=== PATIENT | male | born 1950 | race Caucasian/White ===

== ENCOUNTER 2024-07-11 13:49 | Emergency (ER) | payer OTHER ==
[2024-07-11] MEDS ORDERED: ASPIRIN 81 MG CHEWABLE TABLET ONE (14:22)
[2024-07-11 14:29] LABS: Absolute Eosinophils 0.1 K/uL (0-0.5); Absolute Lymphocytes (CBC) 1.7 K/uL (0.7-4.9); Absolute Neutrophil 13.6 K/uL (1.8-8.0); Basophils % 0.3 % (0-1.3); Eosinophils % 0.9 % (0-4.4); Hematocrit 43.1 % (39.6-49.0); Hemoglobin 14.2 g/dL (13.6-17.9); Lymphocytes % 10.3 % (15.3-44.8); MCHC 32.9 g/dL (32.0-36.0); MCV 88.3 fL (80-100); MPV 8.4 fL (7.6-11.3); Monocytes % 6.2 % (3.3-12.3); Neutrophils % 82.3 % (41.7-73.7); Platelets 209 thou/uL (152-406); RBC Red Blood Cell Count 4.88 M/uL (4.33-5.43); Red Cell Distribution Width 14.1 % (12.1-15.2)
[2024-07-11 14:46] LABS: Anion Gap 5.5 mEq/L (5.0-15.0); Magnesium 2.3 mg/dL (1.6-2.4); Potassium 3.5 mEq/L (3.5-5.1); Troponin High Sensitivity 4.1 pg/mL (<58.9)
--- NOTE | 2024-07-11 15:10 | RAD REPORT ---
Procedure: Chest Single View HISTORY: Chest pain COMPARISON: none FINDINGS: The lungs appear clear of acute infiltrate. No significant pleural effusion noted. The heart is normal size. IMPRESSION: No acute abnormality is displayed.
--- NOTE | 2024-07-11 17:29 | ER ---
Nurse's Notes [facility] Name: Elvis Woodall Jr Age: 74 yrs Sex: Male : 1950 Arrival Date: 07/11/2024 Time: 13:49 Bed 8 Private MD: Diagnosis: Chest pain, unspecified Presentation: 07/11 13:58 Chief complaint: Patient states: chest pain that began at 1000 this morning. ss Coronavirus screen: Client denies travel out of the [place] in the last 14 days. Ebola Screen: Patient denies exposure to infectious person. Patient denies travel to an Ebola-affected area in the 21 days before illness onset. Initial Sepsis Screen: Does the patient meet any 2 criteria? No. Patient's initial sepsis screen is negative. Does the patient have a suspected source of infection? No. Patient's initial sepsis screen is negative. Risk Assessment: Do you want to hurt yourself or someone else? Patient reports no desire to harm self or others. Onset of symptoms was July 11, 2024. 13:58 Method Of Arrival: Ambulatory ss 13:58 Acuity: KRISTAN 3 ss Historical: - Allergies: 13:58 No Known Allergies; ss - Immunization history:: Adult Immunizations unknown. - Infectious Disease History:: Denies. - Social history:: Smoking status: unknown. Screenin:12 [facility] ED Fall Risk Assessment (Adult) History of falling in the last 3 months, ko1 including since admission No falls in past 3 months (0 pts) Confusion or Disorientation No (0 pts) Intoxicated or Sedated No (0 pts) Impaired Gait No (0 pts) Mobility Assist Device Used Yes (1 pt) Altered Elimination No (0 pt) Score/Fall Risk Level 0 - 2 = Low Risk Oriented to surroundings, Maintained a safe environment, Educated pt \T\ family on fall prevention, incl call for assistance when getting out of bed, Assessed \T\ reinforced patient's understanding of fall precautions, Provided non-skid footwear, Hourly rounding (assess needs \T\ fall precautionary measures) done. Abuse screen: Denies threats or abuse. Denies injuries from another. Nutritional screening: No deficits noted. Tuberculosis screening: No symptoms or risk factors identified. Assessment: 14:13 General: Appears in no apparent distress. Behavior is calm, cooperative, appropriate ko1 for age. Pain: Complains of pain in chest Pain does not radiate. Pain began suddenly, 3 hours ago. Neuro: No deficits noted. Cardiovascular: Reports chest pain. Respiratory: No deficits noted. GI: No deficits noted. : No deficits noted. EENT: No deficits noted. Derm: No deficits noted. Musculoskeletal: No deficits noted. Vital Signs: 13:58 BP 161 / 86; Pulse 87; Resp 16; Temp 98(TE); Pulse Ox 97% on R/A; Weight 88.45 kg; ss Height 5 ft. 10 in. ; Pain 2/10; 14:32 BP 165 / 86; Pulse 79; Resp 15; Pulse Ox 99% ; ko1 15:39 BP 137 / 82; Pulse 84; Resp 16; Pulse Ox 99% ; ko1 17:26 BP 146 / 83; Pulse 87; Resp 15; Pulse Ox 96% ; ko1 13:58 Body Mass Index 27.98 (88.45 kg, 177.8 cm) ss 13:58 Pain Scale: Adult ED Course: 13:56 Patient arrived in ED. cc6 13:58 Pura Asher FNP-C is PHCP. kb 13:58 Jeff Knutson DO is Attending Physician. kb 13:58 Triage completed. ss 13:58 Arm band placed on right wrist. EKG completed in triage. Results shown to MD. ss 14:10 Janell Olivares, RN is Primary Nurse. ko1 14:12 Patient has correct armband on for positive identification. Bed in low position. Call ko1 light in reach. Side rails up X 1. Provided Education on: labs, meds. Client placed on continuous cardiac and pulse oximetry monitoring. NIBP monitoring applied. threat monitoring analyst on. Door closed. Noise minimized. Lights dimmed. Warm blanket given. Pillow given. 14:12 No provider procedures requiring assistance completed. Patient maintains SpO2 ko1 saturation greater than 95% on room air. 14:23 Basic Metabolic Panel Sent. cc6 14:23 CBC with Diff Sent. cc6 14:23 Magnesium Sent. cc6 14:23 NT PRO-BNP Sent. cc6 14:23 Troponin HS Sent. cc6 14:23 Initial lab(s) drawn, by [facility], sent to lab. Inserted saline lock: 20 gauge in left cc6 antecubital area, using aseptic technique. Blood collected. Flushed with 10 mL NS. 14:32 XRAY Chest (1 view) In Process Unspecified. EDMS 16:30 Patient requests rest room assistance. Nurse Practitioner and/or Physician Picture Booker to ko1 see patient. 16:30 Assisted to bathroom. ko1 17:28 IV discontinued, intact, bleeding controlled, No redness/swelling at site. Pressure ko1 dressing applied. Administered Medications: 14:24 Drug: Aspirin PO Chewable Tablet 324 mg PO once; 81 mg tablets x 4 Route: PO; ko1 14:54 Follow up: Response: No adverse reaction ko1 Medication: 14:12 VIS not applicable for this client. ko1 Outcome: 17:28 Condition: stable ko1 17:28 Discharge instructions given to patient, Instructed on discharge instructions, follow up and referral plans. Demonstrated understanding of instructions, follow-up care, 17:29 Discharge ordered by . kb 17:37 Discharged to home ambulatory, with family, ko1 17:38 Patient left the ED. ko1 Signatures: Dispatcher [employer] EDMS Pura Asher, CLIENT BUSINESS MANAGER-C MAY-Isamar Wagner, RN RN ss Janell Olivares, RN RN ko1 Kenyetta Dominguez cc6
--- NOTE | 2024-07-11 17:29 | EDPHYS ---
Physician Documentation [facility] Name: Elvis Woodall Jr Age: 74 yrs Sex: Male : 1950 Arrival Date: 07/11/2024 Time: 13:49 Bed 8 Private MD: ED Physician Jeff Knutson HPI: 07/11 14:03 This 74 yrs old Male presents to ER via Ambulatory with complaints of Chest Pain > 30 kb y/o. 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 States it has gotten worse since onset so he decided to come get it checked out. Pain does not radiate. Denies shortness of breath, nausea, vomiting. . Historical: - Allergies: 13:58 No Known Allergies; ss - Immunization history:: Adult Immunizations unknown. - Infectious Disease History:: Denies. - Social history:: Smoking status: unknown. ROS: 14:02 Constitutional: As per HPI kb Exam: 14:02 Constitutional: This is a well developed, well nourished patient who is awake, alert, kb and in no acute distress. Head/Face: Normocephalic, atraumatic. ENT: Moist Mucous membranes Chest/axilla: Normal chest wall appearance and motion. Cardiovascular: Regular rate Respiratory: Respirations even and unlabored. No increased work of breathing. Talking in full sentences Skin: Warm, dry with normal turgor. Normal color. MS/ Extremity: Pulses equal, no cyanosis. Neurovascular intact. Full, normal range of motion. Neuro: Awake and alert, GCS 15, oriented to person, place, time, and situation. 14:02 ECG was reviewed by the Attending Physician. Vital Signs: 13:58 BP 161 / 86; Pulse 87; Resp 16; Temp 98(TE); Pulse Ox 97% on R/A; Weight 88.45 kg; ss Height 5 ft. 10 in. ; Pain 2/10; 14:32 BP 165 / 86; Pulse 79; Resp 15; Pulse Ox 99% ; ko1 15:39 BP 137 / 82; Pulse 84; Resp 16; Pulse Ox 99% ; ko1 17:26 BP 146 / 83; Pulse 87; Resp 15; Pulse Ox 96% ; ko1 13:58 Body Mass Index 27.98 (88.45 kg, 177.8 cm) ss 13:58 Pain Scale: Adult ss MDM: 13:58 Medical Screening Exam initiated kb 17:24 Differential diagnosis: abnormal EKG, acute myocardial infarction, chest wall pain. kb HEART Score: Total Score = 2. The patient was given aspirin in the Emergency Department. Data reviewed: vital signs, nurses notes. Consideration of Admission/Observation Escalation of care including admission/observation considered. admission considered but serial troponin normal, HEART score 2. Counseling: I had a detailed discussion with the patient and/or guardian regarding the historical points, exam findings, and any diagnostic results supporting the discharge/admit diagnosis, lab results, radiology results, the need for outpatient follow up, a logging equipment operator, a family practitioner, to return to the emergency department if symptoms worsen or persist or if there are any questions or concerns that arise at home. 07/11 13:59 Order name: Basic Metabolic Panel; Complete Time: 14:46 kb 07/11 13:59 Order name: CBC with Diff; Complete Time: 14:32 kb 07/11 13:59 Order name: Magnesium; Complete Time: 14:46 kb 07/11 13:59 Order name: NT PRO-BNP; Complete Time: 14:46 kb 07/11 13:59 Order name: Troponin HS; Complete Time: 14:46 kb 07/11 16:29 Order name: Troponin High Sensitivity; Complete Time: 17:24 kb 07/11 13:59 Order name: XRAY Chest (1 view); Complete Time: 15:18 kb 07/11 13:59 Order name: EKG; Complete Time: 13:59 kb 07/11 13:59 Order name: Cardiac monitoring; Complete Time: 14:01 kb 07/11 13:59 Order name: EKG - Nurse/Tech; Complete Time: 14:01 kb 07/11 13:59 Order name: IV Saline Lock; Complete Time: 14:23 kb 07/11 13:59 Order name: Labs collected and sent; Complete Time: 14:23 kb 07/11 13:59 Order name: O2 Per Protocol; Complete Time: 14:01 kb 07/11 13:59 Order name: O2 Sat Monitoring; Complete Time: 14:01 kb EC:02 Rate is 84 beats/min. Rhythm is regular. QRS Onyx is Normal. VT interval is normal at kb 146 msec. QRS interval is normal at 92 msec. QT interval is normal at 437 msec. Administered Medications: 14:24 Drug: Aspirin PO Chewable Tablet 324 mg PO once; 81 mg tablets x 4 Route: PO; ko1 14:54 Follow up: Response: No adverse reaction ko1 Disposition: 17:37 I was immediately available on-site in the Emergency Department for consultation in the ms3 care of the patient. Disposition Summary: 07/11/24 17:29 Discharge Ordered Notes: Location: Home kb Condition: Stable kb Diagnosis - Chest pain, unspecified kb Followup: kb - With: Emergency Department - When: As needed - Reason: Worsening of condition Followup: kb - With: Private Physician - When: 2 - 3 days - Reason: Recheck today's complaints, Continuance of care, Re-evaluation by your physician Discharge Instructions: - Discharge Summary Sheet kb - Nonspecific Chest Pain, Adult, [id number] kb Forms: - Medication Reconciliation Form kb - Antibiotic Education kb - Prescription Opioid Use kb - Patient Portal Instructions kb - Leadership Thank You Letter kb Signatures: Dispatcher [employer] EDAR Pura Asher, JOURNEYMAN PLUMBER-C JOURNEYMAN PLUMBER-Ckb Isamar Singer, RN RN ss Jeff Knutson DO DO ms3 Janell Olivares, YONAS RN ko1 Corrections: (The following items were deleted from the chart) 16:30 16:30 Troponin High [id number] ordered. [facility]
[2024-07-11 17:43] VITALS: TEMP 98
[2024-07-11 17:49] VITALS: BP 146/83; O2SAT 96
--- NOTE | 2024-07-13 11:31 | EKG ---
Test Date: 2024-07-11 Test Time: 13:52:03 Senior Environmental Practice Leader: BUDDY MEASUREMENT RESULTS: Intervals: Rate: 84 UT: 146 QRSD: 92 QT: 370 QTc: 437 [place]: P: 42 UT: 146 QRS: 32 T: 63 INTERPRETIVE STATEMENTS: Normal sinus rhythm Normal ECG No previous ECG available for comparison Electronically Signed On 07-13-24 11:28:41 JOCKEY'S AGENT by Mainor Rahman
== END 2024-07-11 17:38 | disposition home or self-care (01) ==
LOC: ER 13:49
DX: R07.9 Chest pain, unspecified (principal)
CPT/HCPCS: 36415; 71045; 80048; 83735; 83880; 84484; 85025; 93005; 99285